=== PATIENT | female | born 2005 | race Caucasian/White ===

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

== ENCOUNTER 2025-07-17 17:08 | Emergency (ER) | payer MEDICAID, OTHER ==
[~2025-07-17] VITALS: Ht 167.6 cm; Wt 118.2 kg
[~2025-07-17 17:08] MED LIST: DIPH25CA83 PO; PANT-47 PO; PRED50TA PO
[2025-07-17 17:16] VITALS: BP 98/77; PULSE 80; RESP 18; TEMP 97.6; O2SAT 96
--- NOTE | 2025-07-17 18:35 | Physician Documentation ---
History of Present Illness ~ Chief Complaint: Back Pain Stated Complaint: ABD PAIN Time Seen by MD: 18:28 Primary Medical Doctor: None HPI This is a 19-year-old female who presents with one-month of episodes of right thoracic back pain that wraps to front of her ribcage described as spasming, patient reports that the episodes are becoming more painful. Patient reports that certain positions we will make the pain better in certain positions will make it worse. Patient reports no other acute symptoms or concerns. Patient reports that she has been caring her infant around recently. Medication Reconciliation Allergies: Coded Allergies: No Known Allergies (Unverified , 07/17/25) Scheduled Diphenhydramine HCl (Benadryl), 1 CAP PO HS Ibuprofen (Ibuprofen), 1 TAB PO Q8H Lidocaine (Lidoderm), 1 PATCH TOP DAILY Pantoprazole Sodium (PROTONIX tablet), 1 TAB PO DAILY Prednisone (Prednisone), 1 TAB PO DAILY Past Medical History Past Medical History: Anemia Past Surgical History: no surgical history Alcohol Use: None Drug Use: none Lives In: Home Review of Systems ROS As stated above in the HPI, otherwise all systems are reviewed and negative. Physical Exam Physical Exam Vital Signs: Temperature: 97.6, Source: Temporal, Heart Rate: 80, Respiratory Rate: 18, BP: 98/77, Pulse Oximetry: 96, Weight: 118.180 Physical Exam VITALS: Reviewed and as above. GENERAL: Alert, nontoxic appearing, no apparent distress. RESPIRATORY: No increased work of breathing, no respiratory distress, speaking in full clear sentences BACK: Right lower thoracic back tender cloth printing to palpation, no central spinal tenderness, no CVA tenderness GI: Abdomen soft, nontender, nondistended, no rebound, no guarding Progress Results/Orders Results/Orders Vital Signs 07/17/25 17:16 Temp 97.6 Pulse 80 Resp 18 B/P (MAP) 98/77 Pulse Ox 96 Medical Decision Making Additional information obtaine: N/A Findings This 19-year-old female presented with one-month of episodes of right thoracic back pain radiating around to right lower lateral ribs worsened certain p ositions and described as spasming, physical exam demonstrated tenderness to palpation consistent with muscle spasm, it was reassuring patient reported no fevers, chills, or urinary symptoms and there was no CVA tenderness. With shared decision-making in careful discussion with the patient patient will be treated with high-dose NSAID and topical lidocaine patch for symptoms, patient was offered muscle relaxer though declined. Patient is to follow up with primary care provider in the next few days. Careful return precautions given and patient verbalized understanding. Patient is otherwise well-appearing and appropriate for discharge. Differential Dx:Considerations: AAA, , Appendicitis, Cholelithiasis, Cholangitis, Ectopic , Fracture, Musculoskeletal pain, Urinary obstruction, Urolithiasis, Ovarian torsion, Urinary tract infection Departure Time of Disposition: 18:36 Disposition: HOME / SELF CARE / HOMELESS Impression: Primary Impression: Acute thoracic back pain Qualified Codes: M54.6 - Pain in thoracic spine Condition: Improved Discharge Instructions: Acute Back Pain, Adult Additional Instructions: Based on your description of the pain and your physical exam I believe this may be muscular pain, please use the prescribed ibuprofen and Lidoderm patches for this pain, if this does not improve your symptoms or your symptoms worsen please return to the emergency department. Otherwise please follow up with your primary care provider in the next few days. Please return to the emergency department for any new or worsening concerning symptoms. Referrals: NO PRIMARY CARE PROVIDER (PCP) Prescriptions Ibuprofen (Ibuprofen) 800 Mg Tablet 1 TAB PO Q8H for pain for 10 Days, #30 TAB 0 Refills Prov: ALYX RUTH 07/17/25 Lidocaine (Lidoderm) 5 % Adh..patch 1 PATCH TOP DAILY for 10 Days, #10 PATCH 0 Refills may wear up to 12 hours Prov: ALYX RUTH 07/17/25 Education Educated: Patient Educated regarding: diagnosis, treatment, prognosis, need for follow up Signature Scribe Signature: No scribe Attestation: The note accurately reflects work and decisions made by me.JAMIE Torrez 07/17/25 21:14 ALYX RUTH Jul 17, 2025 18:35
[2025-07-17] MEDS ORDERED: IBUP-1986 PO (18:40)
[2025-07-17] MEDS ORDERED: LIDO-52 TOP (18:40)
== END 2025-07-17 18:57 | disposition home or self-care (01) ==
LOC: ER 17:09
DX: M54.6 Pain in thoracic spine (principal)
CPT/HCPCS: 99283